=== PATIENT | female | born 1970 | race Caucasian/White ===

== ENCOUNTER → 2016-10-26 | Outpatient (CLI) | payer OTHER ==
[~2016-10-26] MED LIST: PRED-301 PO
--- NOTE | 2016-10-26 15:44 | DIAGNOSTIC IMAGING REPORT ---
KUB CLINICAL HISTORY: R30.0 [id number] [id number] COMPARISON STUDY: 04/28/2016 FINDINGS: There are innumerable bilateral renal calculi. There is mild gaseous prominence the bowel. There are no transition zones to indicate bowel obstruction. Pelvic basin calcifications remain similar in orientation to the prior study favoring phleboliths. IMPRESSION: Innumerable bilateral renal calculi. Electronically signed by: Bubba Mistry M.D. 10/26/2016 3:42 PM Dictated Date/Time: 10/26/2016 3:41 PM
--- NOTE | 2016-10-26 16:35 | DIAGNOSTIC IMAGING REPORT ---
RENAL ULTRASOUND HISTORY: R30.0 [id number] Nephrolithiasis latex [id number] COMPARISON: KUB 10/26/2016. FINDINGS: Right kidney: 11.7 cm. No hydronephrosis. Extensive renal calculi resulting in echogenic medullary pyramids. Left kidney: 11.6 cm. No hydronephrosis. Extensive renal calculi resulting in echogenic medullary pyramids. Bladder: No bladder wall thickening. The bilateral ureteral jets were identified. IMPRESSION: Extensive bilateral renal calculi resulting in echogenic medullary pyramids. This is consistent with medullary nephrocalcinosis. No hydronephrosis Electronically signed by: Brandon Trent M.D. 10/26/2016 4:34 PM Dictated Date/Time: 10/26/2016 4:31 PM
== END | disposition home or self-care (01) ==
LOC: C.ULTR 15:20
PROVIDERS: ATTEND Urology
DX: R31.9 Hematuria, unspecified (principal); R30.0 Dysuria; N20.0 Calculus of kidney

== ENCOUNTER 2020-02-07 12:55 | Observation (INO) ==
[2020-02-07] MEDS ORDERED: MoRPHine SULFATE 4 MG/ML 1 ML CARP\\VIAL IV STA (13:13)
[2020-02-07] MEDS ORDERED: SODIUM CHLORIDE 0.9% 1000ML 1,000 ML IV ONE (13:13)
[2020-02-07] MEDS ORDERED: ONDANSETRON INJ 2 MG/ML 2 ML VIAL IV STA (13:13)
--- NOTE | 2020-02-07 13:20 | Emergency Department Note ---
Impression & Plan Left ureteral calculus, Nausea, Acute UTI ED Provider Note Provider: Ra Lange MD DATE OF SERVICE: 02/07/2020 CHIEF COMPLAINT: Flank pain HISTORY OF PRESENT ILLNESS: Patient is a 49-year-old female history of kidney stones requiring lithotripsy presenting today for evaluation of renal colic. Patient had a telemedicine visit yesterday with urology and scheduled for lithotripsy this coming Wednesday. Was evaluated recently at the [facility] emergency department 8 mm left-sided stone. Has been using Percocet for pain at home. Had preoperative studies today but due to her significant pain came here for further evaluation. Patient states of your pain started approximately 36 hours ago. Percocet last night did not help with the pain. Took additional time this morning that improvement. Avoiding anti- inflammatory/aspirin secondary to upcoming lithotripsy. Patient states no URI symptoms or trouble breathing. Has baseline sarcoidosis on chronic prednisone. Continued to be on Cipro at this time since Wednesday night. Denies any jah hematuria. No significant left-sided tenderness but fairly consistent pain. States feels a bit nauseous but no vomiting. REVIEW OF SYSTEMS: A total of 10 review of systems was obtained and negative except as stated above in the HPI. PAST MEDICAL HISTORY: As noted above MEDICATIONS: Includes prednisone, chlorothiazide, metformin, Cipro, as needed Percocet FMH: No family history of sarcoidosis SOCIAL HISTORY: , non-smoker PHYSICAL EXAM: GENERAL: alert and oriented in no acute distress on stretcher with a mask on appears mildly uncomfortable Head: normocephalic and atraumatic EYES: No injection, discharge or icterus. ENT: Mucous membranes pink and moist. LUNGS: Airway patent. No retractions. Breath sounds clear HEART: Regular rate and rhythm. No chest wall tenderness ABDOMEN: Soft and non-tender, without guarding or rebound. No masses BACK: No bilateral flank tenderness. SKIN: Acyanotic, warm, dry, without rashes EXTREMITIES: Without swelling, tenderness or deformity NEUROLOGICAL: No focal deficits. No aphasia. No facial droop or slurred speech. Reviewed the patient's recent EKG from 1026 this morning in the outpatient setting without noted ischemic changes. CONTINUOUS CARDIAC MONITORING: was ordered and showed a heart rate of 98 bpm in normal sinus rhythm [facility]'s [facility] HOSPITAL COURSE: 1303 Patient was first seen and H&P performed. 1423 Patient reassessed and updated. Patient was still in discomfort. Additional pain medicine ordered. Plan of care discussed 1431 discussed with Lauryn Thorne of the [facility] Patient's laboratory studies and imaging reviewed. Chest x-ray from earlier this morning report is reviewed without evidence of pneumonia or pneumothorax. Differential includes Appendicitis, ovarian cyst, ovarian torsion, ectopic , TOA, PID, infections, diverticulitis, UTI, obstruction, mesenteric ischemia, aortic pathology, inflammatory bowel disease, renal colic, PUD, pancreatitis, biliary pathology, hernia, volvulus, constipation, as well as other pathologies. IMPRESSION/MEDICAL DECISION MAKING: Patient's presentation seems most consistent with refractory renal calculus stone. Not peritoneal. Basic labs were checked. KUB report from yesterday was reviewed as well as the report from Wednesday night. Symptomatically treated here for pain. We will avoid antiplatelet agents given plan for lithotripsy. Doubt perforation or other acute intra-abdominal catastrophe. On reassessment the patient's nausea is improved but still significant is covered. Given some Dilaudid for additional pain control. Laboratory studies show evidence of a leukocytosis of 18 that does appear to be increased from 13 on Wednesday as well as some renal dysfunction with a creatinine of 1.44 (baseline 0.9). Urinalysis shows some blood 1+ leukoesterase 10-30 white cells although there are significant epithelials noted. Question is being truly an infected sample versus contaminant. Has been on Cipro. Given leukocytosis and known stone however did give a dose of ceftriaxone at this time I do however doubt she is septic at this juncture. Given her constellation of symptoms and findings feel that further evaluation is an inpatient with urological consultation would be beneficial. Patient was in agreement with this plan. There is no evidence of acute cardiac issue, pancreatic inflammation, or liver dysfunction. Discussed with the [facility] service for further inpatient care. DIAGNOSIS: Left-sided kidney stone, dehydration, UTI DISPOSITION: Hospitalist will evaluate for further inpatient mgmt Past Med/Surg History Medical History (Updated 02/07/20 @ 16:10 by Mary Alice Teixeira PA-C) Asthma Bilateral nephrolithiasis Diabetes mellitus, type II Esophageal reflux Hyperlipidemia Hypertension Nontoxic multinodular goiter Obesity Sarcoidosis Thyroid lesion Surgical History H/O dilation and curettage Hx of lithotripsy Hx of tympanostomy tubes S/P breast biopsy, right Family History Mother Breast cancer Diabetes Hypertension Recurrent kidney stones Father Heart disease Hypertension Recurrent kidney stones Prostate cancer Social History (Updated 02/07/20 @ 16:08 by Mary Alice Teixeira PA-C) Preferred Language: Mauritian Communication Ability: Effective [place] Required: No Beliefs That Will Affect Care: None Current Living Situation: Spouse Other Information That Helps Us Care for You: No Feels Safe at Home: Yes Safety Concerns: Feels Safe At This Time Smoking Status: Never smoker Hx Alcohol Use: Yes Alcohol Intake Frequency: Rarely Hx Substance Use: No Allergies Allergies Allergy/AdvReac Type Severity Reaction Status Date / Time clarithromycin Allergy Unknown FELT Verified 02/07/20 14:03 DISCONNECTED lisinopril AdvReac Unknown COUGH Unverified 02/07/20 14:03 Home Meds Home Medications Medication Instructions Recorded Confirmed cholecalciferol (vitamin D3) 50 2,000 unit PO DAILY 02/06/20 02/07/20 mcg (2,000 unit) capsule dulaglutide 1.5 mg/0.5 mL 1.5 mg SQ WEEKLY ml 02/06/20 02/07/20 subcutaneous pen injector hydrochlorothiazide 25 mg tablet 25 mg PO DAILY 02/06/20 02/07/20 loratadine-pseudoephedrine ER 10 1 tab PO DAILY 02/06/20 02/07/20 mg-240 mg tablet,extended [id number] metformin 500 mg tablet 1,000 mg PO BID tab 02/06/20 02/07/20 metoprolol succinate 50 mg 75 mg PO DAILY tab 02/06/20 02/07/20 tablet,extended release 24 hr omeprazole 40 mg capsule,delayed 40 mg PO DAILY 02/06/20 02/07/20 release prednisone 5 mg tablet 5 mg PO DAILY 02/06/20 02/07/20 rosuvastatin 5 mg tablet 5 mg PO DAILY 02/06/20 02/07/20 ascorbic acid (vitamin C) [Vitamin 500 mg PO DAILY 02/07/20 02/07/20 C] ciprofloxacin HCl 500 mg PO BID 02/07/20 02/07/20 vitamin E 400 unit PO DAILY 02/07/20 02/07/20 Results & Data (ED) Vital Signs Vital Signs - 24 hr 02/07/20 12:56 02/07/20 13:30 02/07/20 14:45 Temperature 36.8 C Temperature Source Oral Pulse Rate 98 H Pulse Rate [Finger] 78 Respiratory Rate 16 20 Blood Pressure 146/86 H Blood Pressure [Left Arm] 124/67 Blood Pressure Mean 106 Blood Pressure Mean [Left Arm] 86 Pulse Oximetry 99 99 100 Oxygen Delivery Method Room Air Room Air Room Air Sepsis Recent Fever Within 48 Hours No Sepsis New/Unexplained Change in Mental Status No Sepsis Action Taken by Nursing No Action Required Laboratory Data Result diagrams: 02/07/20 13:30 02/07/20 13:30 Lab Results 02/07/20 02/07/20 02/07/20 Range/Units 13:30 13:30 13:30 WBC 18.24 H (4.8-10.8) K/uL RBC 4.86 (4.2-5.4) M/uL Hgb 14.2 (12.0-16.0) g/dL Hct 42.0 (37-47) % MCV 86.4 (80-100) fL MCH 29.2 (25-34) pg MCHC 33.8 (32-36) g/dL RDW Std Deviation 47.0 H (36.4-46.3) fL RDW Coeff of Orin 14.8 H (11.5-14.5) % Plt Count 328 (130-400) K/uL MPV 9.8 (7.4-10.4) fL Immature Gran % (Auto) 0.4 % Neut % (Auto) 81.5 % Lymph % (Auto) 9.9 % Stone % (Auto) 7.2 % Eos % (Auto) 0.8 % Baso % (Auto) 0.2 % Immature Gran # (Auto) 0.07 H (0.00-0.02) K/uL Neut # (Auto) 14.86 H (1.4-6.5) K/uL Lymph # (Auto) 1.81 (1.2-3.4) K/uL Stone # (Auto) 1.32 H (0.11-0.59) K/uL Eos # (Auto) 0.15 (0-0.5) K/uL Baso # (Auto) 0.03 (0-0.2) K/uL Sodium 132 L (136-145) mmol/L Potassium 3.8 (3.5-5.1) mmol/L Chloride 103 (98-107) mmol/L Carbon Dioxide 26 (21-32) mmol/L Anion Gap 3.0 (3-11) BUN 20 H (7-18) mg/dl Creatinine 1.44 H (0.6-1.2) mg/dl Est Cr Clr Drug Dosing 60.6 ml/min Est GFR ( Amer) 48.6 Est GFR (Non-Af Amer) 41.9 BUN/Creatinine Ratio 14.1 (10-20) Glucose 106 H (70-99) mg/dl Calcium 9.3 (8.5-10.1) mg/dl Total Bilirubin 0.1 L (0.2-1) mg/dl AST 18 (15-37) U/L ALT 21 (12-78) U/L Alkaline Phosphatase 101 (45-117) U/L Troponin I < 0.015 (0-0.045) ng/ml Total Protein 8.3 H (6.4-8.2) gm/dl Albumin 3.7 (3.4-5.0) gm/dl Globulin 4.6 H (2.5-4.0) gm/dl Albumin/Globulin Ratio 0.8 L (0.9-2) Lipase 116 (73-393) U/L Specimen Hemolysis Urine Color Yellow Urine Appearance Clear (Clear) Urine pH 5.0 (4.5-7.5) Ur Specific [place] 1.022 (1.000-1.030) Urine Protein Negative (Negative) Urine Glucose (UA) Negative (Negative) Urine Ketones Negative (Negative) Urine Blood 1+ H (Negative) Urine Nitrite Negative (Negative) Urine Bilirubin Negative (Negative) Urine Urobilinogen Negative (Negative) Ur Leukocyte Esterase 1+ H (Negative) Urine WBC (Auto) 10-30 H (0-5) /hpf Urine RBC (Auto) 5-10 H (0-4) /hpf U Hyaline Cast (Auto) 1-5 (0-5) /lpf U Epithel Cells (Auto) >30 H (0-5) /lpf Urine Bacteria (Auto) Negative (Negative) Administered Medications Sodium Chloride (Nss 1000ml) 1,000 mls @ 100 mls/hr IV .Q10H MABLE Stop: 02/08/20 13:01 Last Admin: 02/07/20 17:05 Dose: 100 mls/hr Documented by: [id number] Oxycodone HCl (Roxicodone Immediate Rel) 5 mg PO Q4H PRN PRN Reason: Moderate Pain Stop: 02/21/20 17:01 Last Admin: 02/07/20 17:42 Dose: 5 mg Documented by: [id number] Discontinued Medications Hydromorphone HCl (Dilaudid) 0.5 mg IV NOW STA Stop: 02/07/20 14:24 Last Admin: 02/07/20 14:39 Dose: 0.5 mg Documented by: [id number] Sodium Chloride (Nss 1000ml) 1,000 mls @ 999 mls/hr IV .Q1H1M ONE Stop: 02/07/20 14:13 Last Infusion: 02/07/20 14:21 Dose: 0 mls/hr Documented by: [id number] Admin: 02/07/20 13:29 Dose: 999 mls/hr Documented by: [id number] Ceftriaxone Sodium (Rocephin) 2,000 mg in 70 mls @ 140 mls/hr IV NOW STA Stop: 02/07/20 14:55 Last Infusion: 02/07/20 15:09 Dose: 0 mls/hr Documented by: [id number] Admin: 02/07/20 14:39 Dose: 140 mls/hr Documented by: [id number] Morphine Sulfate (Morphine Sulfate) 4 mg IV NOW STA Stop: 02/07/20 13:14 Last Admin: 02/07/20 13:29 Dose: 4 mg Documented by: [id number] Ondansetron HCl (Zofran) 4 mg IV NOW STA Stop: 02/07/20 13:14 Last Admin: 02/07/20 13:29 Dose: 4 mg Documented by: [id number] Discharge Plan Visit Data *Final* Discharge Date/Time: 02/07/20 16:14 Chief Complaint: Kidney Stone Stated Complaint: KIDNEY STONE ED Provider: Ra Lange Discharge Problem: Left ureteral calculus, Nausea, Acute UTI Patient Disposition: Admitted As Inpatient Discharge Instructions Interventions: ED Discharge Assessment Last Done: 02/07/20 16:14
[2020-02-07 13:53] LABS: Basophils # (auto) 0.03 K/uL (0-0.2); Basophils % (auto) 0.2 %; Eosinophils # (auto) 0.15 K/uL (0-0.5); Eosinophils % (auto) 0.8 %; Hemoglobin 14.2 g/dL (12.0-16.0); Immature Granulocytes # (auto) 0.07 K/uL (0.00-0.02); Immature Granulocytes % (auto) 0.4 %; Lymphocytes # (auto) 1.81 K/uL (1.2-3.4); Lymphocytes % (auto) 9.9 %; Mean Corpuscular Hemoglobin 29.2 pg (25-34); Mean Corpuscular Hgb Conc 33.8 g/dL (32-36); Mean Corpuscular Volume 86.4 fL (80-100); Mean Platelet Volume 9.8 fL (7.4-10.4); Monocytes # (auto) 1.32 K/uL (0.11-0.59); Monocytes % (auto) 7.2 %; Neutrophils # (auto) 14.86 K/uL (1.4-6.5); Neutrophils % (auto) 81.5 %; Platelet Count 328 K/uL (130-400); RDW Coefficient of Variation 14.8 % (11.5-14.5); Red Blood Count 4.86 M/uL (4.2-5.4); White Blood Count 18.24 K/uL (4.8-10.8)
[2020-02-07 13:55] LABS: Appearance Urine Clear (Clear); Bacteria Urine Automated Negative (Negative); Bilirubin Urine Negative (Negative); Blood Urine 1+ (Negative); Color Urine Yellow; Epithelial Cell Urine Auto >30 /lpf (0-5); Glucose Urine UA Negative (Negative); Ketones Urine Negative (Negative); Leukocyte Esterase Urine 1+ (Negative); Nitrite Urine Negative (Negative); Protein Urine Negative (Negative); Specific Gravity Urine 1.022 (1.000-1.030); Urobilinogen Urine Negative (Negative)
[2020-02-07 14:19] LABS: Alanine Aminotransferase 21 U/L (12-78); Albumin Globulin Ratio 0.8 (0.9-2); Albumin Level 3.7 gm/dl (3.4-5.0); Alkaline Phosphatase 101 U/L (45-117); Aspartate Aminotransferase 18 U/L (15-37); BUN Creatinine Ratio 14.1 (10-20); Bilirubin,Total 0.1 mg/dl (0.2-1); Blood Urea Nitrogen 20 mg/dl (7-18); Calcium 9.3 mg/dl (8.5-10.1); Carbon Dioxide 26 mmol/L (21-32); Chloride 103 mmol/L (98-107); Creatinine Clr Calc Pharmacy 60.6 ml/min; Est GFR (African American) 48.6; Est GFR (Non-African American) 41.9; Globulin 4.6 gm/dl (2.5-4.0); Glucose 106 mg/dl (70-99); Lipase 116 U/L (73-393); Potassium 3.8 mmol/L (3.5-5.1); Sodium 132 mmol/L (136-145); Total Protein 8.3 gm/dl (6.4-8.2); Troponin I < 0.015 ng/ml (0-0.045)
[2020-02-07] MEDS ORDERED: HYDROmorphone INJ 0.5 MG/0.5 ML SYR IV STA (14:23)
[2020-02-07] MEDS ORDERED: cefTRIAXone SODIUM 2,000 MG/70 ML BAG IV STA (14:26)
--- NOTE | 2020-02-07 16:04 | History & Physical Report ---
Date of Service February 07, 2020 Assessment & Plan (1) Left ureteral calculus: (2) Renal colic: Pt is 49 y/o F with PMH DM II, HTN, HLD, obesity, pulmonary sarcoidosis, GERD, multinodular goiter, kidney stones, H/O lithotripsy presented to ER with complaint of left ankle pain. Patient reports left flank pain started 02/04/2020 and she was seen at [facility] ER. There she had CT abdomen pelvis showing 8 mm calculus just distal to left UPJ, mild left hydronephrosis, bilateral renal calculi. Patient was discharged on Cipro and Percocet. Her urine culture was negative. Patient follows with [facility] urology and had telehealth visit 02/06/2020 and had reported KUB showing visualization of stone and plan for lithotripsy 02/09/2020. Pain not controlled with Percocet at home. Denies fever/chills, N/V. In ER afebrile, P: 98, R: 16, BP: 146/86, 99% on RA. WBC: 18, UA: 1+blood, 1+leuk esterase, 10-30 WBC, 5-10 RBC, >30 epithelial cells -In ER given 1L NSS, morphine, Dilaudid, Zofran, Rocephin -Urine culture pending, blood culture pending -Rocephin -Percocet, Dilaudid as needed for pain -IVF -Strain urine -Urology consult, spoke with Becki RAMACHANDRAN reports probable plan for lithotripsy on 02/09/20, however keep NPO midnight in case of procedure -CBC, BMP in am (3) ARIELLE (acute kidney injury): BUN: 20, Cr: 1.4, GFR: 41.9. No h/o CKD -Avoid nephrotoxic agents including NSAIDs -Monitor renal functions (4) Diabetes mellitus, type II: A1c: 6.3 on 12/22/2019 -Hold metformin, Trulicity -Novolog sliding scale per protocol (5) Hypertension: -Hold HCTZ secondary to ARIELLE -Continue metoprolol (6) Hyperlipidemia: -Continue statin (7) Sarcoidosis: Pulmonary sarcoidosis -Continue chronic prednisone (8) Esophageal reflux: -Continue PPI DVT Prophylaxis -SCDs Full Code Follows with Gisella Irene PA-C for routine care Pt was seen and care coordinated with Dr West. See addendum History of Present Illness Chief Complaint: Left flank pain Primary Care Provider: Gisella Irene PA-C Pt is 49 y/o F with PMH DM II, HTN, HLD, obesity, pulmonary sarcoidosis, GERD, multinodular goiter, kidney stones, H/O lithotripsy presented to ER with complaint of left ankle pain. Patient reports left flank pain started 02/04/2020 and she was seen at [facility] ER. There she had CT abdomen pelvis showing 8 mm calculus just distal to left UPJ, mild left hydronephrosis, bilateral renal calculi. Patient was discharged on Cipro and Percocet. Her urine culture was negative. She states she took Ibuprofen but discontinued that 2 days ago. Patient follows with [facility] urology and had telehealth visit 02/06/2020 and had reported KUB showing visualization of stone and plan for lithotripsy 02/09/2020. Patient reports having left flank pain that is not controlled with Percocet at home. Denies nausea or vomiting. Reports decreased appetite. Had bagel for breakfast and a few crackers for lunch. Denies any noted hematuria, dysuria, urinary frequency, urinary retention. Denies felt that her abdominal pain. Denies fever/chills, diaphoresis, diarrhea, constipation, HE, dizziness, syncope, vision changes, neck pain, CP, SOB, orthopnea, palpitations, cough, sore throat, choking, otalgia, rhinorrhea, paresthesias, weakness, extremity weakness, extremity edema, rashes. Allergies Allergy/AdvReac Type Severity Reaction Status Date / Time clarithromycin Allergy Unknown FELT Verified 02/07/20 14:03 DISCONNECTED lisinopril AdvReac Unknown COUGH Unverified 02/07/20 14:03 Home Medications Home Medications Medication Instructions Recorded Confirmed Type cholecalciferol (vitamin D3) 50 2,000 unit PO DAILY 02/06/20 02/07/20 History mcg (2,000 unit) capsule dulaglutide 1.5 mg/0.5 mL 1.5 mg SQ WEEKLY ml 02/06/20 02/07/20 History subcutaneous pen injector hydrochlorothiazide 25 mg tablet 25 mg PO DAILY 02/06/20 02/07/20 History loratadine-pseudoephedrine ER 10 1 tab PO DAILY 02/06/20 02/07/20 History mg-240 mg tablet,extended [id number] metformin 500 mg tablet 1,000 mg PO BID tab 02/06/20 02/07/20 History metoprolol succinate 50 mg 75 mg PO DAILY tab 02/06/20 02/07/20 History tablet,extended release 24 hr omeprazole 40 mg capsule,delayed 40 mg PO DAILY 02/06/20 02/07/20 History release prednisone 5 mg tablet 5 mg PO DAILY 02/06/20 02/07/20 History rosuvastatin 5 mg tablet 5 mg PO DAILY 02/06/20 02/07/20 History ascorbic acid (vitamin C) [Vitamin 500 mg PO DAILY 02/07/20 02/07/20 History C] ciprofloxacin HCl 500 mg PO BID 02/07/20 02/07/20 History vitamin E 400 unit PO DAILY 02/07/20 02/07/20 History Past Med/Surg History Medical History (Updated 02/07/20 @ 16:10 by Mar yAlice Teixeira PA-C) Asthma Bilateral nephrolithiasis Diabetes mellitus, type II Esophageal reflux Hyperlipidemia Hypertension Nontoxic multinodular goiter Obesity Sarcoidosis Thyroid lesion Surgical History H/O dilation and curettage Hx of lithotripsy Hx of tympanostomy tubes S/P breast biopsy, right Family History Mother Breast cancer Diabetes Hypertension Recurrent kidney stones Father Heart disease Hypertension Recurrent kidney stones Prostate cancer Social History (Updated 02/07/20 @ 16:08 by Mary Alice Teixeira PA-C) Preferred Language: Indonesian Communication Ability: Effective [employer] Teacher Required: No Beliefs That Will Affect Care: None Current Living Situation: Spouse Other Information That Helps Us Care for You: No Feels Safe at Home: Yes Safety Concerns: Feels Safe At This Time Smoking Status: Never smoker Hx Alcohol Use: Yes Alcohol Intake Frequency: Rarely Hx Substance Use: No Review of Systems Review of Systems: All systems reviewed & are unremarkable except as noted in HPI & below Physical Exam Physical Exam: General: no acute distress, obese Head: normocephalic, atraumatic Eyes: PERRL, EOM's intact, conjunctiva non-injected, anicteric ENT: normal inspection external ears, nose, mucous membranes moist Neck: supple, trachea midline Lungs: clear, no respiratory distress, no wheezing/rhonchi/rales CV: RRR, no murmur, no pretibial edema Abd: normal BS, protuberant secondary to adipose tissue, soft, +left flank tenderness to palpation Ext: no cyanosis, no calf tenderness Neuro: A&O x 3, no focal deficits noted, normal affect Skin: warm, dry Results & Data Results & Data ([facility]) Vital Signs (Past 12 Hours) Vital Signs Temp Pulse Pulse Resp BP BP Pulse Ox 02/07/20 14:45 78 20 124/67 100 02/07/20 13:30 99 02/07/20 12:56 36.8 C 98 H 16 146/86 H 99 Laboratory Results Short CBC 02/07/20 Range/Units 13:30 WBC 18.24 H (4.8-10.8) K/uL Hgb 14.2 (12.0-16.0) g/dL Hct 42.0 (37-47) % Plt Count 328 (130-400) K/uL BMP 02/07/20 13:30 Sodium 132 L Potassium 3.8 Chloride 103 Carbon Dioxide 26 BUN 20 H Creatinine 1.44 H Glucose 106 H Calcium 9.3 Cardiac Enzymes 02/07/20 Range/Units 13:30 Troponin I < 0.015 (0-0.045) ng/ml Liver Function 02/07/20 Range/Units 13:30 Total Bilirubin 0.1 L (0.2-1) mg/dl AST 18 (15-37) U/L ALT 21 (12-78) U/L Alkaline Phosphatase 101 (45-117) U/L Albumin 3.7 (3.4-5.0) gm/dl Urine 02/07/20 Range/Units 13:30 Urine Color Yellow Urine Appearance Clear (Clear) Urine pH 5.0 (4.5-7.5) Ur Specific [place] 1.022 (1.000-1.030) Urine Protein Negative (Negative) Urine Glucose (UA) Negative (Negative) Code Status & VTE Plan VTE Prophylaxis Plan VTE Prophylaxis will be ordered: Yes Supervising Physician Co-Signing Physician Notes I have seen and examined the patient and have discussed the case with the provider above. I agree with the assessment and plan as stated. 49 yo F presents with failure of outpatient treatment of an 8mm ureteral stone with left sided hydronephrosis. She also now has a new ARIELLE as above. Urine does not appear infected at this time; notably she has been on cipro for a few days. Physical as above. Stable vitals no signs of sepsis. Pain severe but manageable with Dilaudid. Abdomen soft, TTP in LUQ>LLQ and L CVA tenderness. Heart and lung exam WNL and she is mentating clearly. Will add flomax and scheduled Tylenol to help reduce the need for narcotics. CT a/p from [facility] revealed an 8mm stone with hydronephrosis. She went home and had such severe pain, she returned to the hospital. The patient is immunocompromised and now has an ARIELLE. [facility] plan is to perform definitive ureteroscopy with stone removal tomorrow. Avoiding the need for frequent hospital/office visits in this immunosuppressed patient would be preferred. As the Urology team advised her via [employer] to avoid NSAIDs we will not offer her this now; Dilaudid seems to be controlling her pain. NPO p MN in case of procedure. DO Brett
[2020-02-07] MEDS ORDERED: CARBOHYDRATES FOR HYPOGLYCEMIA PO PRN (17:02)
[2020-02-07] MEDS ORDERED: POLYETHYLENE (MIRALAX) 17 GM PACK PO PRN (17:02)
[2020-02-07] MEDS ORDERED: ACETAMINOPHEN 325 MG TAB PO PRN (17:02)
[2020-02-07] MEDS ORDERED: GLUCOSE 40% GEL 15 GM TUBE PO PRN (17:02)
[2020-02-07] MEDS ORDERED: GLUCAGON FOR INJ 1 MG VIAL SQ PRN (17:02)
[2020-02-07] MEDS ORDERED: ONDANSETRON INJ 2 MG/ML 2 ML VIAL IV PRN (17:02)
[2020-02-07] MEDS ORDERED: GLUCOSE 10 TABS/TUBE PO PRN (17:02)
[2020-02-07] MEDS ORDERED: DEXTROSE 50% 50 ML SYRINGE IV PRN (17:02)
[2020-02-07] MEDS: SODIUM CHLORIDE 0.9% 1000ML 1,000 ML IV SCH (17:05)
[2020-02-07] MEDS: OXYCODONE HCL IR 5 MG TAB (IMMEDIATE RELEASE) PO PRN ×2 (17:42→22:16)
[2020-02-07] MEDS: INSULIN ASPART 100 UNITS/ML 3 ML PEN SC SCH ×2 (18:21→21:20)
[2020-02-07] MEDS: HYDROmorphone INJ 0.5 MG/0.5 ML SYR IV PRN (19:59)
[2020-02-07] MEDS: TAMSULOSIN HCL 0.4 MG CAP PO SCH (20:00)
[2020-02-07] MEDS: ACETAMINOPHEN 500 MG TAB PO SCH (21:21)
[2020-02-07] MEDS ORDERED: LORazepam 0.5 MG TAB PO STA (22:34)
[2020-02-08] MEDS: HYDROmorphone INJ 0.5 MG/0.5 ML SYR IV PRN ×3 (01:12→17:26)
[2020-02-08] MEDS: SODIUM CHLORIDE 0.9% 1000ML 1,000 ML IV SCH (03:02)
[2020-02-08] MEDS: ACETAMINOPHEN 500 MG TAB PO SCH ×3 (05:56→21:51)
[2020-02-08 07:06] LABS: Basophils # (auto) 0.02 K/uL (0-0.2); Basophils % (auto) 0.2 %; Eosinophils # (auto) 0.13 K/uL (0-0.5); Eosinophils % (auto) 1.1 %; Hematocrit (blood only) 37.5 % (37-47); Hemoglobin 12.1 g/dL (12.0-16.0); Immature Granulocytes # (auto) 0.02 K/uL (0.00-0.02); Immature Granulocytes % (auto) 0.2 %; Lymphocytes # (auto) 1.77 K/uL (1.2-3.4); Lymphocytes % (auto) 14.8 %; Mean Corpuscular Hgb Conc 32.3 g/dL (32-36); Mean Corpuscular Volume 86.8 fL (80-100); Mean Platelet Volume 9.9 fL (7.4-10.4); Monocytes # (auto) 1.33 K/uL (0.11-0.59); Monocytes % (auto) 11.1 %; Neutrophils # (auto) 8.69 K/uL (1.4-6.5); Neutrophils % (auto) 72.6 %; Platelet Count 261 K/uL (130-400); RDW Coefficient of Variation 15.1 % (11.5-14.5); RDW Standard Deviation 48.3 fL (36.4-46.3); Red Blood Count 4.32 M/uL (4.2-5.4); White Blood Count 11.96 K/uL (4.8-10.8)
[2020-02-08 07:38] LABS: Calcium 8.4 mg/dl (8.5-10.1); Creatinine Clr Calc Pharmacy 69.9 ml/min; Est GFR (African American) 57.7; Est GFR (Non-African American) 49.8
[2020-02-08] MEDS: INSULIN ASPART 100 UNITS/ML 3 ML PEN SC SCH ×4 (08:28→21:40)
[2020-02-08] MEDS: ROSUVASTATIN CALCIUM 5 MG TAB PO SCH (08:29)
[2020-02-08] MEDS: PANTOprazole 40 MG TAB PO SCH (08:29)
[2020-02-08] MEDS: METOPROLOL SUCC 25MG EXT REL TAB PO SCH (08:29)
[2020-02-08] MEDS: cefTRIAXone SODIUM 2,000 MG in DEXTROSE 5% 50 ML IV SCH (09:08)
--- NOTE | 2020-02-08 10:04 | Urology Consultation ---
Date of Consultation February 08, 2020 Assessment & Plan (1) Bilateral nephrolithiasis: Assessment Bilateral nephrolithiasis with proximal left ureteral calculus I reviewed her CT scan from [place] Since she is currently afebrile her pain is controlled will plan on extracorporeal shockwave lithotripsy tomorrow to the left ureteral calculus. She does know if she develops a fever or shaking chills she would need emergent stent. History of Present Illness Attending Physician: Rodrigue Crandall MD History of Present Illness Patient is a 49-year-old white female with a history of nephrolithiasis who was initially seen at [facility] in [place] for left renal colic. CT showed a 7 day mm proximal left ureteral calculus she was discharged home with pain medication but yesterday the pain became more severe so she came to the emergency room and was admitted for pain control. She said she has passed multiple stones and has had multiple lithotripsies before. Currently her pain is controlled. She has had no fevers or chills. Currently no nausea or vomiting. She is scheduled for extracorporeal shockwave lithotripsy tomorrow Allergies Allergy/AdvReac Type Severity Reaction Status Date / Time clarithromycin Allergy Unknown FELT Verified 02/07/20 14:03 DISCONNECTED lisinopril AdvReac Unknown COUGH Unverified 02/07/20 14:03 Home Medications Home Medications Medication Instructions Recorded Confirmed Type cholecalciferol (vitamin D3) 50 2,000 unit PO DAILY 02/06/20 02/07/20 History mcg (2,000 unit) capsule dulaglutide 1.5 mg/0.5 mL 1.5 mg SQ WEEKLY ml 02/06/20 02/07/20 History subcutaneous pen injector hydrochlorothiazide 25 mg tablet 25 mg PO DAILY 02/06/20 02/07/20 History loratadine-pseudoephedrine ER 10 1 tab PO DAILY 02/06/20 02/07/20 History mg-240 mg tablet,extended [id number] metformin 500 mg tablet 1,000 mg PO BID tab 02/06/20 02/07/20 History metoprolol succinate 50 mg 75 mg PO DAILY tab 02/06/20 02/07/20 History tablet,extended release 24 hr omeprazole 40 mg capsule,delayed 40 mg PO DAILY 02/06/20 02/07/20 History release prednisone 5 mg tablet 5 mg PO DAILY 02/06/20 02/07/20 History rosuvastatin 5 mg tablet 5 mg PO DAILY 02/06/20 02/07/20 History ascorbic acid (vitamin C) [Vitamin 500 mg PO DAILY 02/07/20 02/07/20 History C] ciprofloxacin HCl 500 mg PO BID 02/07/20 02/07/20 History vitamin E 400 unit PO DAILY 02/07/20 02/07/20 History Patient History Medical History Asthma Bilateral nephrolithiasis Esophageal reflux Hyperlipidemia Hypertension Nontoxic multinodular goiter Obesity Sarcoidosis Thyroid lesion Surgical History H/O dilation and curettage Hx of lithotripsy Hx of tympanostomy tubes S/P breast biopsy, right Family History Mother Breast cancer Diabetes Hypertension Recurrent kidney stones Father Heart disease Hypertension Recurrent kidney stones Prostate cancer Social History (Updated 02/07/20 @ 16:08 by Mary Alice Teixeira PA-C) Preferred Language: Belarusian Communication Ability: Effective Mash Preparatory Operator Required: No Beliefs That Will Affect Care: None Current Living Situation: Spouse Other Information That Helps Us Care for You: No Feels Safe at Home: Yes Safety Concerns: Feels Safe At This Time Smoking Status: Never smoker Hx Alcohol Use: Yes Alcohol Intake Frequency: Rarely Hx Substance Use: No Review of Systems Review of Systems: Review of systems was reviewed from her admitting history and physical Physical Exam Physical Exam: Constitutional Well-developed well-nourished In no acute distress, Healthy appearing Neuro/psych Alert and oriented x3 Normal mood Normal affect Normal coordination Skin Normal color Normal turgor No rashes Warm and Dry Neck Normal visual inspection Pulmonary Clear Normal rhythm and effort No respiratory distress No audible wheezes Able to speak in complete sentences Cardiac No peripheral edema Regular rate and rhythm Results & Data Vital Signs (Past 12 Hours) Vital Signs Temp Pulse Resp BP Pulse Ox 02/08/20 07:47 36.8 C 94 H 16 133/80 95 02/07/20 23:05 36.8 C 92 H 16 175/87 H 96 PG Care Time/CCT Total # of Minutes Spent Total Time Spent with Patient: Total time spent is greater than 50% in coordination of care (as documented) at patient's floor/unit and/or counseling patient: Coding Level of Care Code 52072 Inpt Consult Level 3 Diagnoses Bilateral nephrolithiasis N20.0
[2020-02-08] MEDS: predniSONE 5 MG TAB PO SCH (10:39)
--- NOTE | 2020-02-08 10:43 | XRay Report ---
XR KUB/Abdomen 1 view CLINICAL HISTORY: stones nephrocalcinosis COMPARISON STUDY: 10/26/2016 FINDINGS: Diffuse bilateral nephrocalcinosis. Possible proximal left ureteral calculus measuring 5 mm . Multiple pelvic calcifications considered unchanged. IMPRESSION: 1. Diffuse bilateral nephrocalcinosis. 2. Potential 5 mm proximal left ureteral calculus. 3. Bowel pattern is consistent with that of a mild generalized nonobstructive ileus. ACT 112: Negative or not required by law. The above report was generated using voice recognition software. It may contain grammatical, syntax or spelling errors. Electronically signed by: Miguel Murray M.D. 02/08/2020 10:41 AM
[2020-02-08] MEDS ORDERED: POLYETHYLENE (MIRALAX) 17 GM PACK PO PRN (14:45)
--- NOTE | 2020-02-08 14:54 | Hospitalist Progress Note ---
Date of Service February 08, 2020 Assessment & Plan (1) Left ureteral calculus: (2) Renal colic: Patient is a 49 yr female with H/O DM II, HTN, HLD, obesity, pulmonary sarcoidosis, GERD, multinodular goiter, kidney stones, H/O lithotripsy presented with left ankle pain. Left Ureteral Calculus Bilateral Nephrolithiasis KUB: Diffuse bilateral nephrocalcinosis.Potential 5 mm proximal left ureteral calculus. Bowel pattern is consistent with that of a mild generalized nonobstructive ileus. Partially treated for possible UTI with Cipro prior to admission Blood Cx:pending Urine Cx: No growth Continue IV fluids, pain control, flomax, strain urine Planned for Lithotripsy tmw Appreciate Urology help Hypokalemia Replace electrolytes as needed (3) ARIELLE (acute kidney injury): Cr:1.4>>1.2 Continue IV fluids Avoid nephrotoxic agents Monitor renal functions (4) Diabetes mellitus, type II: A1c: 6.3 on 12/22/2019 Hold metformin, Trulicity Novolog sliding scale per protocol (5) Hypertension: Hold HCTZ secondary to ARIELLE Continue metoprolol (6) Hyperlipidemia: Continue statin (7) Sarcoidosis: Pulmonary sarcoidosis Continue chronic prednisone (8) Esophageal reflux: Continue Protonix DVT Px SCDs Code Status Full Code Admission and Anticipated Discharge Date Admission Date: February 07, 2020 Subjective Patient is seen and examined at bedside Complains of left flank pain this morning Denies any dysuria, hematuria, chest pain, shortness of breath, dizziness Planned for lithotripsy tomorrow States having nausea but no vomiting Offers no other complaints Review of Systems Review of Systems: All systems reviewed & are unremarkable except as noted in HPI & below Physical Exam Physical Exam: Physical Exam: Vitals signs as noted above General Appearance:Obese, no apparent distress Head: normocephalic, Atraumatic Eyes: normal inspection, EOMI Neck: supple, Trachea midline Respiratory/Chest: Normal breath sounds, CTA Cardiovascular: S1, S2, No murmur Abdomen/GI:Soft, Non tender, Bowel sounds present, Left flank tender Extremities/Musculoskelatal:normal inspection, no edema Neurologic/Psych:AAOX3, grossly no focal neurological deficits Skin: normal color, warm Results & Data Results & Data [facility] Vital Signs (Past 12 Hours) Vital Signs Temp Pulse Resp BP Pulse Ox 02/08/20 07:47 36.8 C 94 H 16 133/80 95 Laboratory Results Short CBC 02/08/20 Range/Units 06:36 WBC 11.96 H (4.8-10.8) K/uL Hgb 12.1 (12.0-16.0) g/dL Hct 37.5 (37-47) % Plt Count 261 (130-400) K/uL BMP 02/08/20 02/08/20 06:36 07:45 Sodium 134 L Potassium 3.4 L Chloride 106 Carbon Dioxide 26 BUN 15 Creatinine 1.25 H Glucose 107 H Calcium 8.4 L
[2020-02-08] MEDS: OXYCODONE HCL IR 5 MG TAB (IMMEDIATE RELEASE) PO PRN (15:41)
[2020-02-08] MEDS: NSS + 20MEQ KCL 20 MEQ/1,000 ML BAG IV SCH (15:42)
[2020-02-08] MEDS: TAMSULOSIN HCL 0.4 MG CAP PO SCH (20:27)
[2020-02-09] MEDS: NSS + 20MEQ KCL 20 MEQ/1,000 ML BAG IV SCH ×2 (00:55→13:34)
[2020-02-09] MEDS ORDERED: Nursing to Pharmacy Communication ONE ×2 (01:13→13:23)
[2020-02-09] MEDS ORDERED: LACTULOSE SYRUP 20 GM/30 ML UDC PO STA (04:00)
[2020-02-09] MEDS ORDERED: DOCUSATE SODIUM/SENNA 50/8.6MG TAB PO SCH (04:00)
[2020-02-09] MEDS: ACETAMINOPHEN 500 MG TAB PO SCH ×2 (05:09→14:31)
[2020-02-09 06:09] LABS: Hematocrit (blood only) 37.6 % (37-47); Hemoglobin 12.4 g/dL (12.0-16.0); Mean Corpuscular Hemoglobin 28.7 pg (25-34); Mean Platelet Volume 9.8 fL (7.4-10.4); Platelet Count 273 K/uL (130-400); RDW Standard Deviation 48.1 fL (36.4-46.3); Red Blood Count 4.32 M/uL (4.2-5.4); White Blood Count 11.44 K/uL (4.8-10.8)
[2020-02-09] MEDS: INSULIN ASPART 100 UNITS/ML 3 ML PEN SC SCH ×2 (06:10→13:02)
[2020-02-09 06:47] LABS: BUN Creatinine Ratio 10.9 (10-20); Calcium 8.5 mg/dl (8.5-10.1); Creatinine Clr Calc Pharmacy 68.8 ml/min; Est GFR (African American) 56.6; Est GFR (Non-African American) 48.8; Magnesium 2.2 mg/dl (1.8-2.4); Potassium 3.8 mmol/L (3.5-5.1)
--- NOTE | 2020-02-09 07:32 | Urology Progress Note ---
Date of Service February 09, 2020 Assessment & Plan (1) Bilateral nephrolithiasis: Bilateral nephrolithiasis with an obstructing left ureteral stone Plan for left ESWL today Risks, benefits, alternatives reviewed She is anxious to move forward with surgery as she has been very uncomfortable for several days Ceftriaxone to be administered now per her admission orders, no additional antibiotics necessary for surgery Subjective Patient continues to experience left flank pain Still with some mild nausea No vomiting No fevers Anxious for surgery today Review of Systems Review of Systems: All systems reviewed & are unremarkable except as noted in HPI & below Physical Exam Constitutional: well developed and well nourished Neck: neck nontender Respiratory: normal respiratory effort; no respiratory distress and does not use accessory muscles Cardiovascular: Rate/Rhythm: regular rate Vessels: radial pulses present Extremities: no edema Gastrointestinal (Abdomen): Inspection/Auscultation: abdomen normal to inspection Percussion/Palpation: abdomen soft; abdomen nontender and no guarding Musculoskeletal: Head/Neck/Chest: normocephalic and head atraumatic Extremities: extremities normal to inspection Skin: no rashes and no lesions Trauma: no evidence of skin trauma Neurologic: awake; not obtunded Speech / Cognition: normal speech Motor/Sensory: no tremor Psychiatric: Orientation: alert and oriented x 3 Lymphatic: no lymphadenopathy Results & Data Vital Signs (Past 12 Hours) Vital Signs Temp Pulse Resp BP Pulse Ox 02/08/20 23:34 36.7 C 75 16 137/80 95 PG Care Time/CCT Total # of Minutes Spent Total Time Spent with Patient: Total time spent is greater than 50% in coordination of care (as documented) at patient's floor/unit and/or counseling patient: Coding Level of Care Code 97562 Subseq Hosp Care Lvl 2 Diagnoses Bilateral nephrolithiasis N20.0
[2020-02-09] MEDS: cefTRIAXone SODIUM 2,000 MG in DEXTROSE 5% 50 ML IV SCH (07:53)
[2020-02-09] MEDS ORDERED: fentaNYL citrate 100 MCG/2 ML VIAL IV PRN (08:34)
[2020-02-09] MEDS ORDERED: ePHEDrine sulfate 50 MG/ML AMP IV PRN (08:34)
[2020-02-09] MEDS ORDERED: ONDANSETRON INJ 2 MG/ML 2 ML VIAL IV PRN (08:34)
[2020-02-09] MEDS ORDERED: HYDROmorphone INJ 1 MG/ML SYRINGE IV PRN (08:34)
[2020-02-09] MEDS ORDERED: ATROPINE SULFATE 0.1 MG/ML 10ML SYR IV PRN (08:34)
[2020-02-09] MEDS ORDERED: SCOPOLAMINE 1.5 MG TDSY ONE (08:48)
--- NOTE | 2020-02-09 10:29 | Operative Report ---
PG Post Operative Report Pre & Post Diagnosis Operation Date: 02/09/20 09:00 Pre: Left nephrolithiasis Post: Left nephrolithiasis I identified the patient and participated in the time-out.: Yes Procedure Operation Date: 02/09/20 09:00 left ESWL Surgeon Gabriel Lewis MD Warehouse Person none Estimated Blood Loss 0 Findings Consistent with Post-Op Diagnosis Specimens none Description of Procedure The patient was identified in the preoperative holding area, appropriate informed consent was reviewed and completed and the patient was transported to the operating suite. Upon arrival appropriate preoperative antibiotics were administered and general anesthesia induced. The patient was placed in supine position and the stone was localized under fluoroscopy. A total of 3000 shocks were delivered to the stone. There appeared to be good fragmentation of the stone. Details of this procedure can be found on the [facility] information sheet. At the conclusion of the case the patient was extubated and taken to the PACU in stable condition. There were no complications. I attest to the content of the Intraoperative Record and any orders documented therein. Any exceptions are noted below.
--- NOTE | 2020-02-09 10:32 | Urology Progress Note ---
Date of Service February 09, 2020 Assessment & Plan (1) Bilateral nephrolithiasis: Status post left ESWL Appeared to have good results from the pretreatment, presuming she feels well, she should be stable for discharge home Subjective Tolerated left ESWL very well Appeared to fracture the stone appropriately Presuming she progresses well postoperatively she can be discharged home later this afternoon Results & Data Vital Signs (Past 12 Hours) Vital Signs Temp Pulse Resp BP BP Pulse Ox 02/09/20 08:30 36.9 C 92 H 18 151/99 H 98 02/09/20 07:38 36.7 C 82 18 137/84 98 02/08/20 23:34 36.7 C 75 16 137/80 95 PG Care Time/CCT Total # of Minutes Spent Total Time Spent with Patient: Total time spent is greater than 50% in coordination of care (as documented) at patient's floor/unit and/or counseling patient: Coding Level of Care Code None Diagnoses Bilateral nephrolithiasis N20.0
--- NOTE | 2020-02-09 11:17 | Anesthesiology Progress Note ---
Date of Service February 09, 2020 Anesthesia Post Procedure Vital Signs Vital Signs: Temp Pulse Pulse Resp BP BP Pulse Ox 02/09/20 11:10 36.5 C 88 14 141/84 H 95 02/09/20 11:00 86 12 160/80 H 94 02/09/20 10:52 36.6 C 93 H 16 139/77 92 02/09/20 08:30 36.9 C 92 H 18 151/99 H 98 02/09/20 07:38 36.7 C 82 18 137/84 98 02/08/20 23:34 36.7 C 75 16 137/80 95 02/08/20 15:18 36.6 C 83 18 116/77 93 Pain Intensity Left Abdomen: Pain Intensity: 4 Transfer of Care Handoff Completed per policy Notes Mental Status: alert / awake / arousable and participated in evaluation Patient Amnestic to Procedure: Yes Nausea / Vomiting: adequately controlled Pain: adequately controlled Airway Patency, RR, SpO2: stable & adequate BP & HR: stable & adequate Hydration State: stable & adequate Anesthetic Complications: no major complications apparent and Pt Satisfied with anesthetic care
[2020-02-09] MEDS: PANTOprazole 40 MG TAB PO SCH (12:11)
[2020-02-09] MEDS: METOPROLOL SUCC 25MG EXT REL TAB PO SCH (12:11)
[2020-02-09] MEDS: predniSONE 5 MG TAB PO SCH (12:11)
[2020-02-09] MEDS: ROSUVASTATIN CALCIUM 5 MG TAB PO SCH (12:12)
--- NOTE | 2020-02-09 14:07 | Hospitalist Progress Note ---
Date of Service February 09, 2020 Assessment & Plan (1) Left ureteral calculus: (2) Renal colic: Patient is a 49 yr female with H/O DM II, HTN, HLD, obesity, pulmonary sarcoidosis, GERD, multinodular goiter, kidney stones, H/O lithotripsy presented with left ankle pain. Left Ureteral Calculus Bilateral Nephrolithiasis KUB: Diffuse bilateral nephrocalcinosis.Potential 5 mm proximal left ureteral calculus. Bowel pattern is consistent with that of a mild generalized nonobstructive ileus. Partially treated for possible UTI with Cipro prior to admission S/P Left ESWL POD #0 Blood Cx:No growth to date Urine Cx: No growth Received IV fluids Pain is controlled continue flomax, strain urine Appreciate Urology help Needs follow up with Urology upon discharge Hypokalemia Replace electrolytes as needed (3) ARIELLE (acute kidney injury): Cr:1.4>>1.2 Received IV fluids Avoid nephrotoxic agents Monitor renal functions (4) Diabetes mellitus, type II: A1c: 6.3 on 12/22/2019 Hold metformin, Trulicity Novolog sliding scale per protocol (5) Hypertension: Hold HCTZ secondary to ARIELLE Continue metoprolol (6) Hyperlipidemia: Continue statin (7) Sarcoidosis: Pulmonary sarcoidosis Continue chronic prednisone (8) Esophageal reflux: Continue Protonix DVT Px SCDs Code Status Full Code Admission and Anticipated Discharge Date Admission Date: February 07, 2020 Subjective Patient is seen and examined at bedside Denies left flank pain today States having mild hematuria after having ESWL which is expected Tolerated ESWL well Offers no other complaints Denies any chest pain, SOB, dizziness, nausea Eager to get discharged Review of Systems Review of Systems: All systems reviewed & are unremarkable except as noted in HPI & below Physical Exam Physical Exam: Physical Exam: Vitals signs as noted above General Appearance:Obese, no apparent distress Head: normocephalic, Atraumatic Eyes: normal inspection, EOMI Neck: supple, Trachea midline Respiratory/Chest: Normal breath sounds, CTA Cardiovascular: S1, S2, No murmur Abdomen/GI:Soft, Non tender, Bowel sounds present, Left flank mild tender Extremities/Musculoskelatal:normal inspection, no edema Neurologic/Psych:AAOX3, grossly no focal neurological deficits Skin: normal color, warm Results & Data Results & Data ([facility]) Vital Signs (Past 12 Hours) Vital Signs Temp Pulse Pulse Resp BP Pulse Ox 02/09/20 12:56 36.7 C 92 H 18 136/83 92 02/09/20 12:09 36.8 C 88 18 131/81 93 02/09/20 11:22 36.7 C 87 16 139/83 95 02/09/20 11:10 36.5 C 88 14 141/84 H 95 02/09/20 11:00 86 12 160/80 H 94 02/09/20 10:52 36.6 C 93 H 16 139/77 92 02/09/20 08:30 36.9 C 92 H 18 151/99 H 98 02/09/20 07:38 36.7 C 82 18 137/84 98 Laboratory Results Short CBC 02/09/20 Range/Units 05:39 WBC 11.44 H (4.8-10.8) K/uL Hgb 12.4 (12.0-16.0) g/dL Hct 37.6 (37-47) % Plt Count 273 (130-400) K/uL BMP 02/09/20 05:39 Sodium 138 Potassium 3.8 Chloride 107 Carbon Dioxide 27 BUN 14 Creatinine 1.27 H Glucose 113 H Calcium 8.5
--- NOTE | 2020-02-09 14:19 | Discharge Summary ---
Date of Service February 09, 2020 Admission HPI Per Admitting Provider Pt is 49 y/o F with PMH DM II, HTN, HLD, obesity, pulmonary sarcoidosis, GERD, multinodular goiter, kidney stones, H/O lithotripsy presented to ER with complaint of left ankle pain. Patient reports left flank pain started 02/04/2020 and she was seen at [facility] ER. There she had CT abdomen pelvis showing 8 mm calculus just distal to left UPJ, mild left hydronephrosis, bilateral renal calculi. Patient was discharged on Cipro and Percocet. Her urine culture was negative. She states she took Ibuprofen but discontinued that 2 days ago. Patient follows with [facility] urology and had telehealth visit 02/06/2020 and had reported KUB showing visualization of stone and plan for lithotripsy 02/09/2020. Patient reports having left flank pain that is not controlled with Percocet at home. Denies nausea or vomiting. Reports decreased appetite. Had bagel for breakfast and a few crackers for lunch. Denies any noted hematuria, dysuria, urinary frequency, urinary retention. Denies felt that her abdominal pain. Denies fever/chills, diaphoresis, diarrhea, constipation, HE, dizziness, syncope, vision changes, neck pain, CP, SOB, orthopnea, palpitations, cough, sore throat, choking, otalgia, rhinorrhea, paresthesias, weakness, extremity weakness, extremity edema, rashes. Admission Exam Per Admitting Provider Physical Exam Physical Exam: General: no acute distress, obese Head: normocephalic, atraumatic Eyes: PERRL, EOM's intact, conjunctiva non-injected, anicteric ENT: normal inspection external ears, nose, mucous membranes moist Neck: supple, trachea midline Lungs: clear, no respiratory distress, no wheezing/rhonchi/rales CV: RRR, no murmur, no pretibial edema Abd: normal BS, protuberant secondary to adipose tissue, soft, +left flank tenderness to palpation Ext: no cyanosis, no calf tenderness Neuro: A&O x 3, no focal deficits noted, normal affect Skin: warm, dry Principal Diagnosis Left Ureteral Calculus Bilateral Nephrolithiasis Hypokalemia Acute Kidney Injury Discharge Data Allergies Allergy/AdvReac Type Severity Reaction Status Date / Time clarithromycin Allergy Unknown FELT Verified 02/09/20 08:29 DISCONNECTED lisinopril AdvReac Unknown COUGH Unverified 02/09/20 08:29 Consultations 02/07/20 14:34 ED Decision to Admit Stat 02/07/20 17:02 Consult Urology Routine Procedures Performed Operation Date: 02/09/20 09:00 Actual Procedures p Left Extracorporeal Shockwave Lithotripsy(Left) - Reg Lewis MD Ordered Studies KUB: Diffuse bilateral nephrocalcinosis.Potential 5 mm proximal left ureteral calculus. Bowel pattern is consistent with that of a mild generalized nonobstructive ileus. Hospital Course (1) Left ureteral calculus: (2) Renal colic: Patient is a 49 yr female with H/O DM II, HTN, HLD, obesity, pulmonary sarcoidosis, GERD, multinodular goiter, kidney stones, H/O lithotripsy presented with left ankle pain. Left Ureteral Calculus Bilateral Nephrolithiasis KUB: Diffuse bilateral nephrocalcinosis.Potential 5 mm proximal left ureteral calculus. Bowel pattern is consistent with that of a mild generalized nonobstructive ileus. Partially treated for possible UTI with Cipro prior to admission S/P Left ESWL POD #0 Blood Cx:No growth to date Urine Cx: No growth Received IV fluids Pain is controlled continue flomax, strain urine Appreciate Urology help Needs follow up with Urology upon discharge Hypokalemia Replace electrolytes as needed (3) ARIELLE (acute kidney injury): Cr:1.4>>1.2 Received IV fluids Avoid nephrotoxic agents Monitor renal functions (4) Diabetes mellitus, type II: A1c: 6.3 on 12/22/2019 Hold metformin, Trulicity Novolog sliding scale per protocol (5) Hypertension: Hold HCTZ secondary to ARIELLE Continue metoprolol (6) Hyperlipidemia: Continue statin (7) Sarcoidosis: Pulmonary sarcoidosis Continue chronic prednisone (8) Esophageal reflux: Continue Protonix DVT Px SCDs Code Status Full Code Total Time Total Time Spent Total Time Spent (In Minutes): 38 minutes Total Time Includes: Examination of the Patient, Discharge Planning, Medication Reconciliation, Communication With Other Providers and Other Discharge Plan Discharge Items Patient Disposition: Home - Self-Care Reason For Visit: RENAL COLIC,ARIELLE Discharge Diagnosis: Left Ureteral Calculus Acute Kidney Injury Activity: Resume your previous activity Exercise/Sports: Gradually increase as tolerated Non-emergency contact: Primary Care Provider and Urologist Call non-emergency contact if: you have any medication questions, your symptoms worsen, your pain is not controlled, your pain is worsening, your pain is unusual for you, your pain is concerning for you and you have a fever Follow-up/Referrals: Gisella Irene PA-C [Primary Care Provider] - Diet: Heart Healthy Addtl Attending Provider Instructions: Follow up with your PCP in 1 week Follow up with your Urologist in 2 weeks as advised Your blood cultures are pending at the time of discharge. Please follow up with your physician for final results. Seek immediate medical attention if your symptoms reoccur or worsen Pending Studies at Discharge: Yes Studies:: Blood Cultures Stand-Alone Forms: My [facility] [employer], Smoking Cessation Medications and DC Order Prescriptions: New polyethylene glycol 3350 [Miralax] 17 gram Powder In Packet 17 g PO DAILY PRN (Reason: constipation) Qty: 30 RF: 0 tamsulosin 0.4 mg Capsule 0.4 mg PO HS Qty: 30 RF: 0 famotidine [Pepcid] 20 mg tablet 20 mg PO BID 5 Days Qty: 10 RF: 0 Continued omeprazole 40 mg capsule,delayed release(DR/EC) 40 mg PO DAILY RF: 0 hydrochlorothiazide 25 mg tablet 25 mg PO DAILY RF: 0 metformin 500 mg tablet 1,000 mg PO BID RF: 0 metoprolol succinate [Toprol XL] 50 mg tablet extended release 24 hr 75 mg PO DAILY RF: 0 rosuvastatin 5 mg tablet 5 mg PO DAILY RF: 0 prednisone 5 mg tablet 5 mg PO DAILY RF: 0 dulaglutide 1.5 mg/0.5 mL pen injector 1.5 mg SQ WEEKLY RF: 0 cholecalciferol (vitamin D3) 50 mcg (2,000 unit) capsule 2,000 unit PO DAILY RF: 0 loratadine-pseudoephedrine [Claritin-D 24 Hour] 10-240 mg tablet extended release 24 hr 1 tab PO DAILY RF: 0 ciprofloxacin HCl 500 mg tablet 500 mg PO BID RF: 0 vitamin E 400 unit Capsule 400 unit PO DAILY RF: 0 ascorbic acid (vitamin C) [Vitamin C] 500 mg Tablet 500 mg PO DAILY RF: 0 Discharge Orders: Discharge Order (Routine); Ordered 04/24/20 Ordered By: Rodrigue Crandall Admission Data Admit Date/Time: 02/07/20 15:27 Attending Provider: Rodrigue Crandall Admit Provider: Olamide West Primary Care Provider: Gisella Irene Other Providers: Olamide West ; James Stallings
[2020-02-09] MEDS ORDERED: PROPOFOL IV EMULSION 10 MG/ML 20 ML VIAL IV ONE (15:07)
[2020-02-09] MEDS ORDERED: LIDOCAINE HCL 2% 2 ML VIAL/AMP(20MG/ML) INFIL ONE (15:07)
[2020-02-09] MEDS ORDERED: ONDANSETRON INJ 2 MG/ML 2 ML VIAL IV ONE (15:07)
[2020-02-09] MEDS ORDERED: fentaNYL citrate 100 MCG/2 ML VIAL IV ONE (15:07)
[2020-02-09] MEDS ORDERED: DEXAMETHASONE SOD INJ 4 MG/ML VIAL IV ONE (15:07)
[2020-02-09] MEDS ORDERED: INSULIN ASPART 100 UNITS/ML 3 ML PEN SC SCH (16:30)
== END 2020-02-09 15:08 | disposition home or self-care (01) ==
LOC: ED 12:55 → INTOOBSV 15:27 → SUATTDRO 15:27 → 2N 15:27 → 3E 02-09 00:58